=== PATIENT | male | born 1995 | race Caucasian/White ===

== ENCOUNTER 2022-02-12 14:26 | Emergency (ER) | payer OTHER ==
[~2022-02-12] VITALS: Ht 180.3 cm; Wt 90.7 kg
[2022-02-12] MEDS ORDERED: TRIAMCINOLONE A15 G1 TOP (17:57)
== END 2022-02-12 18:28 | disposition home or self-care (01) ==
LOC: ED 14:26
DX: L20.9 Atopic dermatitis, unspecified (principal)
CPT/HCPCS: 99282